=== PATIENT | female | born 1995 | race Caucasian/White ===

== ENCOUNTER 2018-08-03 09:54 | Emergency (ER) | payer MEDICAID ==
[~2018-08-03] VITALS: Ht 162.6 cm; Wt 52.3 kg
[2018-08-03 10:08] VITALS: BP 105/52
[2018-08-03 10:37] LABS: CLARITY,URINE SLIGHTLY CLOUDY (Clear); COLOR,URINE YELLOW (Yellow); GLUCOSE, URINE NEGATIVE (Neg); KETONES,URINE NEGATIVE (Neg); LEUKOCYTE ESTERASE ,URINE TRACE (Neg); NITRITES, URINE NEGATIVE (Neg); OCCULT BLOOD,URINE NEGATIVE (Neg); PH,URINE 5.5 (4.8-8.0); PROTEIN,URINE NEGATIVE (Neg); UROBILINOGEN,URINE 0.2 E.U/dL (0.2-1.0)
[2018-08-03 10:38] LABS: URINE HCG NEGATIVE (NEG)
[2018-08-03] MEDS ORDERED: FLUC150T PO (10:38)
[2018-08-03 10:39] LABS: UA COLLECTION TYPE CLN CATCH MIDSTREAM
[2018-08-03 10:44] LABS: BACTERIA,URINE 1+ /HPF (Neg); HYALINE CASTS 0-3 /LPF (NEGATIVE); MUCUS STRANDS FEW /LPF (Neg); SQUAMOUS EPITHELIAL CELL,UR MANY /LPF (FEW); YEAST MODERATE /HPF (NEGATIVE)
[2018-08-03 10:46] LABS: RBC,URINE 0-2 /HPF (0-2); WBC,URINE 0-4 /HPF (0-4)
== END 2018-08-03 10:55 | disposition home or self-care (01) ==
LOC: ER 09:55
DX: B37.3 Candidiasis of vulva and vagina (principal); Z79.899 Other long term (current) drug therapy
CPT/HCPCS: 81001; 81025; 87077; 87088; 99283

== ENCOUNTER 2019-05-25 12:28 | Emergency (ER) | payer MEDICAID ==
[~2019-05-25] VITALS: Ht 162.6 cm; Wt 54.5 kg
[2019-05-25 12:41] VITALS: BP 97/54
[2019-05-25] MEDS ORDERED: PENI500T2 PO (13:23)
[2019-05-25] MEDS ORDERED: IBUP-1984 PO (13:23)
[2019-05-25] MEDS ORDERED: traMADol 50MG tablet PO ONE (13:25)
== END 2019-05-25 13:50 | disposition home or self-care (01) ==
LOC: ER 12:29
DX: K04.7 Periapical abscess without sinus (principal); K02.9 Dental caries, unspecified; Z79.899 Other long term (current) drug therapy
CPT/HCPCS: 99283

== ENCOUNTER 2019-07-16 22:48 | Emergency (ER) | payer MEDICAID ==
[~2019-07-16] VITALS: Ht 162.6 cm; Wt 53.6 kg
[2019-07-17 00:30] VITALS: BP 116/57
[2019-07-17] MEDS ORDERED: metoclopramide 10mg tablet PO ONE (00:35)
[2019-07-17] MEDS ORDERED: pantoprazole 40mg Tablet.DR PO ONE (00:35)
[2019-07-17] MEDS ORDERED: famotidine 20mg tablet PO ONE (00:35)
[2019-07-17] MEDS ORDERED: LIDOcaine Viscous 15ml cup MM STA (00:38)
[2019-07-17] MEDS ORDERED: mag hydrox/Alum hydrox/simeth 30ml oral suspension PO ONE (00:40)
== END 2019-07-17 00:48 | disposition home or self-care (01) ==
LOC: ER 22:48
DX: R07.89 Other chest pain (principal); R10.13 Epigastric pain; R00.2 Palpitations; R06.02 Shortness of breath
CPT/HCPCS: 71045; 93005; 99284; J8597

== ENCOUNTER 2020-08-06 17:22 | Emergency (ER) | payer MEDICAID ==
--- NOTE | 2020-08-06 17:35 | NUR ---
PT COMES UP TO CLINICAL PARTNER AND TELLS HER THAT SHE IS LEAVING.
== END 2020-08-06 17:38 | disposition left against medical advice (07) ==
LOC: ER 17:22
DX: R10.84 Generalized abdominal pain (principal); Z53.21 Procedure and treatment not carried out due to patient leaving prior to being seen by health care provider

== ENCOUNTER 2020-08-07 11:35 | Emergency (ER) | payer MEDICAID ==
[~2020-08-07] VITALS: Ht 165.1 cm; Wt 48.5 kg
[2020-08-07 12:25] LABS: BASOPHILS % (AUTO) 0.5 % (0-1); EOSINOPHILS # (AUTO) 0.2 X10'3 (0-0.9); EOSINOPHILS % (AUTO) 2.2 % (0-6); HEMATOCRIT 38.6 % (35.0-45.0); HEMOGLOBIN 12.9 g/dl (12.0-16.0); LYMPHOCYTES # (AUTO) 2.5 X10'3 (1.1-4.8); LYMPHOCYTES % (AUTO) 33.7 % (21-51); MEAN CORPUSCULAR HEMOGLOBIN 30.5 PG (27.0-31.0); MEAN CORPUSCULAR HGB CONC 33.3 g/dL (33.0-36.5); MEAN CORPUSCULAR VOLUME 91.4 FL (78-98); MEAN PLATELET VOLUME 8.2 FL (7.4-10.4); MONOCYTES # (AUTO) 0.5 X10'3 (0-0.9); MONOCYTES % (AUTO) 7.3 % (2-12); NEUTROPHILS # (AUTO) 4.2 X10'3 (1.8-7.7); NEUTROPHILS % (AUTO) 56.3 % (42-75); PLATELET COUNT 260 X10'3 (140-440); RED BLOOD COUNT 4.23 X10'6 (4.20-5.60); WHITE BLOOD COUNT 7.4 X10'3 (4.5-11.0)
[2020-08-07 12:27] LABS: URINE HCG NEGATIVE (NEG)
[2020-08-07 12:31] LABS: CLARITY,URINE CLOUDY (Clear); COLOR,URINE YELLOW (Yellow); GLUCOSE, URINE NEGATIVE (Neg); KETONES,URINE NEGATIVE (Neg); LEUKOCYTE ESTERASE ,URINE NEGATIVE (Neg); NITRITES, URINE NEGATIVE (Neg); OCCULT BLOOD,URINE TRACE-INTACT (Neg); PROTEIN,URINE NEGATIVE (Neg); UROBILINOGEN,URINE 0.2 E.U/dL (0.2-1.0)
[2020-08-07 12:32] LABS: UA COLLECTION TYPE CLN CATCH MIDSTREAM
[2020-08-07 12:37] LABS: SQUAMOUS EPITHELIAL CELL,UR MANY /LPF (FEW)
[2020-08-07 12:38] LABS: BACTERIA,URINE 2+ /HPF (Neg)
[2020-08-07 12:40] LABS: RBC,URINE 0-2 /HPF (0-2); WBC,URINE 0-4 /HPF (0-4)
[2020-08-07 12:47] LABS: MUCUS STRANDS MANY /LPF (Neg)
[2020-08-07 12:48] LABS: TRANSITIONAL EPI CELLS,URINE FEW /HPF
[2020-08-07 13:20] LABS: ALANINE AMINOTRANSFERASE 25 U/L (12-78); ALKALINE PHOSPHATASE 59 IU/L (46-116); ASPARTATE AMINO TRANSFERASE 15 U/L (10-37); BILIRUBIN,TOTAL 0.3 MG/DL (0.1-1.0); BLOOD UREA NITROGEN 13 MG/DL (7-18); BUN/CREATININE RATIO 13.8 (6.6-38.0); CALCIUM 8.9 MG/DL (8.5-10.1); CREATININE 0.94 MG/DL (0.40-0.90); GLUCOSE 100 MG/DL (70-104); LIPASE 227 U/L (73-393); MAGNESIUM 2.2 MG/DL (1.5-2.4); TOTAL CARBON DIOXIDE 27.2 MMOL/L (24-32); eGFR 73 ML/MIN
[2020-08-07 13:27] LABS: ANION GAP 9 (8-16); CHLORIDE 105 MMOL/L (99-107); POTASSIUM 3.2 MMOL/L (3.5-5.1); SODIUM 141 MMOL/L (135-145)
[2020-08-07 16:08] VITALS: BP 127/97
== END 2020-08-07 16:09 | disposition home or self-care (01) ==
LOC: ER 11:36
DX: R10.31 Right lower quadrant pain (principal)
CPT/HCPCS: 36415; 76705; 76856; 80053; 81001; 81025; 83690; 83735; 84443; 85025; 93976; 99285

== ENCOUNTER 2020-11-15 01:04 | Emergency (ER) | payer MEDICAID ==
[~2020-11-15] VITALS: Ht 162.6 cm; Wt 53.5 kg
[2020-11-15 01:10] VITALS: BP 111/64
[2020-11-15] MEDS ORDERED: LEVO75TA7 PO (01:45)
== END 2020-11-15 01:54 | disposition home or self-care (01) ==
LOC: ER 01:08
DX: B34.9 Viral infection, unspecified (principal); Z20.822 Contact with and (suspected) exposure to COVID-19; R09.89 Other specified symptoms and signs involving the circulatory and respiratory systems; R51.9 Headache, unspecified; R53.83 Other fatigue; Z79.899 Other long term (current) drug therapy
CPT/HCPCS: 87635; 99283; C9803

== ENCOUNTER 2024-08-10 23:47 | Emergency (ER) | payer MEDICAID ==
[~2024-08-10] VITALS: Ht 165.1 cm; Wt 58.2 kg
[~2024-08-10 23:47] MED LIST: LEVO75TA7 PO
[2024-08-10 23:51] VITALS: BP 123/77; PULSE 97; RESP 16; O2SAT 100
[2024-08-11 01:01] VITALS: TEMP 98.5
== END 2024-08-11 01:09 ==
LOC: ER 23:47
DX: Z04.1 Encounter for examination and observation following transport accident (principal); Z79.899 Other long term (current) drug therapy; V89.2XXA Person injured in unspecified motor-vehicle accident, traffic, initial encounter; Y93.89 Activity, other specified; Y92.89 Other specified places as the place of occurrence of the external cause; Y99.8 Other external cause status
CPT/HCPCS: 99283